=== PATIENT | female | born 1980 | race Caucasian/White ===

== ENCOUNTER → 2018-07-02 | Outpatient (CLI) | payer OTHER ==
[~2018-07-02] MED LIST: CATHETER FLUSH 10 ML SYR IV PRN; IOHEXOL 350 MG/ML 100 ML (OMNIPAQUE 350) VIAL IV ONE; NS 100 ML (IVPB) BAG IV ONE; RECEIVED CONTRAST (Hold Metformin) IV SCH
--- NOTE | 2018-07-02 12:22 | Diagnostic Imaging Report ---
PROCEDURE: CT abdomen and pelvis with contrast. TECHNIQUE: Multiple contiguous axial images were obtained through the abdomen and pelvis after administration of intravenous contrast. INDICATION: Abdominal pain with nausea and diarrhea. COMPARISON: No prior studies are available for comparison. FINDINGS: The lung bases are clear. No discrete liver mass is identified. The gallbladder is unremarkable. No biliary ductal dilatation is seen. The pancreas and spleen are unremarkable. No adrenal mass is detected. Kidneys are unremarkable. No definite hydronephrosis is identified. The aorta is nonaneurysmal. The bowel loops are normal in caliber. No obstruction is seen. There is no ascites. Unopacified bladder is unremarkable. There appears to be a cyst in the left ovary measuring approximate 17 mm. There are prominent vascular structures in the adnexa bilaterally, perhaps owing to pelvic congestion. No inflammatory changes in the abdomen or pelvis seen. Evaluation of the bony structures does show grade 1 spondylolisthesis of L5 on S1 with bilateral pars defects. IMPRESSION: No acute abnormality in the abdomen or pelvis is seen. There are prominent vascular structures in the adnexa bilaterally, perhaps on the basis of pelvic congestion. Dictated by: Dictated on workstation # [id number]
== END ==
LOC: RAD 11:20
DX: R10.9 Unspecified abdominal pain (principal); R11.0 Nausea; R19.7 Diarrhea, unspecified; R19.8 Other specified symptoms and signs involving the digestive system and abdomen
CPT/HCPCS: 74177